=== PATIENT | female | born 1975 | race Two or more races ===

== ENCOUNTER 2018-01-30 06:05 | Day surgery (SDC) | payer BC, OTHER ==
[~2018-01-30] VITALS: Ht 165.1 cm; Wt 59.0 kg
[2018-01-30] VITALS (12 sets, daily range): BP systolic 117–146; BP diastolic 68–91
[~2018-01-30 06:05] MED LIST: NKM
[2018-01-30] MEDS ORDERED: cefOXitin Sod 1 GM in D5W 55 ML IVPB ONE (07:00)
--- NOTE | 2018-01-30 07:17 | Anethesia Preoperative Eval ---
Anesthesia Pre-op PMH/ROS General Date of Evaluation: Jan 30, 2018 Time of Evaluation: 07:15 Anesthesiologist: Belinda Sun CRNA ASA Score: ASA 2 Mallampati Score Class I : Soft palate, uvula, fauces, pillars visible Class II: Soft palate, uvula, fauces visible Class III: Soft palate, base of uvula visible Class IV: Only hard plate visible Mallampati Classification: Class II Surgeon: Danny Diagnosis: dysfunctional uterine bleeding Surgical Procedure: Hydrothermal ablation Anesthesia History: none Social History: smoking Family History: no anesthesia problems Allergies: Coded Allergies: No Known Allergies (Unverified , 01/27/18) Medications: see eMAR Patient NPO?: Yes NPO Date: Jan 30, 2018 NPO Time: 00:00 Past Medical History Cardiovascular: Denies: HTN, CAD, [place], valve dz, arrhythmia, other Pulmonary: Reports: other - snoring without apnea; Denies: asthma, COPD, PRABHA Gastrointestinal/Genitourinary: Reports: GERD - gastritis trigerred with heavy meals, no meds; Denies: CRI, ESRD, other Neurologic/Psychiatric: Denies: dementia, CVA, depression/anxiety, TIA, other Endocrine: Denies: DM, hypothyroidism, steroids, other HEENT: Denies: cataract (L), cataract (R), glaucoma, [place] (L), [place] (R), other Hematology/Immune: Reports: anemia; Denies: DVT, bleeding disorder, other Musculoskeletal/Integumentary: Denies: OA, RA, DJD, DDD, edema, other PMH Narrative: as above PSxH Narrative: c/s x 2; lasix, endoscopy Anesthesia Pre-op Phys. Exam Physician Exam Last Vital Signs Date Time Temp Pulse Resp B/P (MAP) Pulse Ox O2 Delivery O2 Flow Rate FiO2 01/30/18 07:04 98.2 84 20 125/73 96 Room Air Constitutional: NAD Neurologic: CN 2-12 intact Cardiovascular: RRR Respiratory: CTA Gastrointestinal: S/NT/ND Airway Exam Mallampati Score: Class II MO: full Neck: no limitations TMD: 2-3 FB ROM: full Teeth: intact Dentures: no upper, no lower Anesthesia Pre-op A/P Labs reviewed, see chart Urine Test Test 01/30/18 06:15 Urine HCG, Qualitative Negative (NEGATIVE) Studies Pre-op Studies: EKG - NSR Risk Assessment & Plan Assessment: ASA 2, OK to proceed Plan: GA with LMA Status Change Before Surgery: No Pre-Antibiotics Drug: TBA Belinda Sun CRNA Jan 30, 2018 07:17
[2018-01-30] MEDS ORDERED: Midazolam 2mg/2ml Inj ONE (07:19)
[2018-01-30] MEDS ORDERED: fentaNYL 100 mcg/2 mL IV ONE (07:19)
[2018-01-30] MEDS ORDERED: Propofol 200mg/20ml IV ONE (07:19)
[2018-01-30] MEDS ORDERED: Zemuron 50mg/5ml Inj IV ONE (07:19)
[2018-01-30] MEDS ORDERED: NS Irrig 4000ml IRRIG ONE (07:31)
[2018-01-30] MEDS ORDERED: Ketorolac 30mg Inj ONE (07:31)
[2018-01-30] MEDS ORDERED: Lidocaine 1% MPF 10mg/ml 5ml ONE (07:31)
[2018-01-30] MEDS ORDERED: LR 1000ml ONE (07:31)
[2018-01-30] MEDS ORDERED: Metoclopramide 10mg/2ml Inj ONE (07:31)
[2018-01-30] MEDS ORDERED: Sterile Water Irrig 1000ml IRRIG ONE (07:31)
[2018-01-30] MEDS ORDERED: NS Irrig 1000ml ONE (07:31)
--- NOTE | 2018-01-30 07:39 | Pre-Procedure Note/Attestation ---
Pre-Procedure Note/Attestation Complete Prior to Procedure Planned Procedure: not applicable Procedure Narrative: hysteroscopy, dilation and curettage, HTA ablation Indications for Procedure Pre-Operative Diagnosis: metromenorrhagia Attestation I attest that I discussed the nature of the procedure; its benefits; risks and complications; and alternatives (and the risks and benefits of such alternatives ), prior to the procedure, with the patient (or the patient's legal retail representative). I attest that, if there was a reasonable possibility of needing a blood transfusion, the patient (or the patient's legal retail representative) was given the [facility] standardized written summary, pursuant to the Stephane Doron Blood Safety Act ([place] Health and Safety Code # 1645, as amended). I attest that I re-evaluated the patient just prior to the surgery and that there has been no change in the patient's H&P, except as documented below: Jaelyn Delgado MD Jan 30, 2018 07:39
[2018-01-30] MEDS ORDERED: Metoclopramide 10mg/2ml Inj IVP PRN (07:45)
[2018-01-30] MEDS ORDERED: HYDROmorphone 1mg/ml Carpuject SUBQ PRN (07:45)
[2018-01-30] MEDS ORDERED: Tylenol #3 tab (300mg/30mg) ORAL PRN (07:45)
[2018-01-30] MEDS ORDERED: Norco 5mg/325mg tab ORAL PRN (07:45)
[2018-01-30] MEDS ORDERED: Hydromorphone 0.5mg/0.5ml inj IVP PRN (07:45)
[2018-01-30] MEDS ORDERED: D5 1/2NS 1,000 ML IV SCH (07:45)
[2018-01-30] MEDS ORDERED: DiphenhydrAMINE 50mg/ml Inj IVP PRN (07:45)
--- NOTE | 2018-01-30 08:37 | Brief Operative Note ---
Immediate Post Operative Note Operative Note Pre-op Diagnosis: metromenorrhagia Procedure: hysteroscopy dilation and curettage HTA ablation Post-op Diagnosis: same Surgeon: becka [employer] Operator: beata Anesthesia: general Specimen: yes Complications: none Condition: stable Fluids: crystalloid Estimated Blood Loss: minimal Drains: none Implant(s) used?: No Jaelyn Delgado MD Jan 30, 2018 08:37
--- NOTE | 2018-01-30 08:48 | Immediate Post-Op Evaluation ---
Immediate Post-Op Evalulation Immediate Post-Op Evalulation Procedure: Hydrothermal ablation endometrial Date of Evaluation: Jan 30, 2018 Time of Evaluation: 08:40 IV Fluids: LR 1000 ML Estimated Blood Loss: minimal Blood Pressure Systolic: 137 Blood Pressure Diastolic: 73 Pulse Rate: 88 Respiratory Rate: 20 O2 Sat by Pulse Oximetry: 100 Temperature (Fahrenheit): 97.6 Pain Score (1-10): 1 Nausea: No Vomiting: No Complications none Patient Status: awake, reacts, patent Hydration Status: adequate Drug: cefazolin Given Within 1 Hr of Incision: Yes Time Given: 08:00 Belinda Sun CRNA Jan 30, 2018 08:48
--- NOTE | 2018-01-30 12:59 | 48 Hour Post Anesthesia Eval ---
Post Anesthesia Evaluation Procedure: Hydrothermal ablation endometrial Date of Evaluation: Jan 30, 2018 Time of Evaluation: 10:45 Blood Pressure Systolic: 128 0: 82 Pulse Rate: 73 Respiratory Rate: 18 Temperature (Fahrenheit): 97.5 O2 Sat by Pulse Oximetry: 99 Airway: patent Nausea: No Vomiting: No Pain Intensity: 0 Hydration Status: adequate Mental Status/LOC: patient returned to baseline Follow-up Care/Observations: Per surgeon Post-Anesthesia Complications: none Follow-up care needed: ready to discharge Belinda Sun CRNA Jan 30, 2018 12:59
--- NOTE | 2018-01-30 18:00 | Operative Note - Dictated ---
DATE OF OPERATION: 01/30/2018 PREOPERATIVE DIAGNOSIS: Metromenorrhagia. POSTOPERATIVE DIAGNOSIS: Metromenorrhagia. PROCEDURES: D and C, hysteroscopy, and hydrothermal ablation. ANESTHESIA: General endotracheal. SURGEON: Jaelyn Delgado M.D. ANESTHESIOLOGIST: Belinda Sun CRNA COMPLICATIONS: None. ESTIMATED BLOOD LOSS: Minimal. PROCEDURE IN DETAIL: After ensuring informed consent, the patient was taken to the operating room where general anesthesia was induced. The patient was sterilely prepped and draped. A weighted speculum was placed in the vagina. Cervix was dilated to an 8 Hegar dilator. Hysteroscope was placed inside the uterine cavity. Uterine cavity was distended with normal saline. The uterine cavity was observed to be normal with proliferative type endometrium. The uterine cavity sounded to 9-1/2 cm. Next, a diagnostic hysteroscopy was terminated and a fractional curettage was performed. Next, using [employer] HCA device, the hysteroscope was replaced inside the uterine cavity at the level of internal cervical os. Next, ablation was commenced. It was continued for 10 minutes up to 90-degree Celsius and cooled down to few minutes. After that, hysteroscopy was continued. Uterine cavity appeared to be normal with complete ablation. Hysteroscope was removed and excellent hemostasis was assured. One suture was placed in the cervix to ensure good hemostasis. All instruments were removed from the vagina. All instrument and lap counts were correct x2. Jaelyn Delgado M.D. DR: POPEYE JOB#: [id number] CC: SNEHAL
== END 2018-01-30 12:50 | disposition home or self-care (01) ==
LOC: SUR 06:05
DX: N92.0 Excessive and frequent menstruation with regular cycle (principal); R06.83 Snoring; K21.9 Gastro-esophageal reflux disease without esophagitis; D64.9 Anemia, unspecified; Z87.891 Personal history of nicotine dependence
CPT/HCPCS: 58563; 81025; J1885; J2250; J2405; J2704; J2765; J3010; 94003; 94150